=== PATIENT | male | born 1995 | race Caucasian/White ===

== ENCOUNTER 2018-06-16 18:15 | Emergency (ER) | payer OTHER ==
[2018-06-16] MEDS ORDERED: fentaNYL 100 MCG/2 ML INJ IVP ONE (18:33)
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
[2018-06-16] MEDS ORDERED: IOPAMIDOL (ISOVUE-300) 100 ML BTL ONE (18:58)
[2018-06-16] MEDS ORDERED: IBUPROFEN 600 MG TAB PO ONE (20:14)
[2018-06-16 22:07] VITALS: BP 150/102
== END 2018-06-16 20:33 ==
LOC: EDUNIT#
DX: S09.90XA Unspecified injury of head, initial encounter (principal); S20.219A Contusion of unspecified front wall of thorax, initial encounter; R40.2412 Glasgow coma scale score 13-15, at arrival to emergency department; V48.0XXA Car driver injured in noncollision transport accident in nontraffic accident, initial encounter; Y99.8 Other external cause status
CPT/HCPCS: J3010; Q9967